=== PATIENT | female | born 1960 ===

== ENCOUNTER → 2021-07-08 15:16 | Outpatient (CLI) | payer BC, SELFPAY ==
--- NOTE | ~2021-07-08 | MMUS_ITS ---
EXAMINATION: MM diag norma implant BI w candace, US breast BI limited HISTORY: Palpable lumps at the 7:00 location of the right breast and upper inner left breast TECHNIQUE: Craniocaudal, mediolateral, and mediolateral oblique 3-D tomosynthesis images with implant displacement of the breasts were performed and synthetic 2-D images were generated. Craniocaudal, m ediolateral oblique, and mediolateral views of the breasts without implant displacement were obtained using full field digital mammography. CAD analysis was submitted and interpreted. High resolution li mited bilateral breast ultrasound was performed. COMPARISON: None BREAST PARENCHYMAL COMPOSITION: There are scattered areas of fibroglandular density. FINDINGS: MAMMOGRAPHIC FINDINGS: Right breast: There is extracapsular rupture of the breast implant with extravasated silicone seen in throughout the breast, most prominently in the lower breast and axillary region. No discrete mass, c alcification, or architectural distortion are identified. No mammographic correlate is identified for the reported palpable abnormality at the 7:00 location the breast however a large amount of extravas ated silicone in this region would likely obscure visualization. Right breast: There is evidence of left breast implant rupture. No discrete mass, calcification, or a rchitectural distortion are identified. No mammographic correlate is identified for the reported palp able abnormality of the upper inner breast. ULTRASOUND: Right breast: No discrete sonographic correlate is identified for the reported palpable abnormality o f the right breast. There is extravasated silicone in the lower breast which causes dense posterior a coustic shadowing. Left breast: No suspicious cystic or sonographic correlate is identified for the reported palpable ab normality of concern. IMPRESSION: 1. Bilateral breast implant rupture without discrete mammographic or sonographic correlate identified for the reported palpable abnormalities. On the right in particular, a large volume of extravasated silicone is seen in the lower breast which could obscure an underlying mass. Clinical follow-up is re commended. If there is high clinical suspicion for malignancy, breast MRI could be considered. 2. Recommend routine screening mammography in one year. BI-RADS Category 2: Benign finding(s). Reviewed, dictated and finalized at location A. [facility] IMPRESSION: 1. Bilateral breast implant rupture without discrete mammographic or sonographi c correlate identified for the reported palpable abnormalities. On the right in particular, a large volume of extravasated silicone is seen in the lower breas t which could obscure an underlying mass. Clinical follow-up is recommended. If there is high clinical suspicion for malignancy, breast MRI could be considere d. 2. Recommend routine screening mammography in one year. BI-RADS Category 2: Benign finding(s).
== END ==
PROVIDERS: Visit Provider Advanced Practice Midwife
DX: R92.8 Other abnormal and inconclusive findings on diagnostic imaging of breast (principal)
CPT/HCPCS: 76642; 77062; 77066; G0279